=== PATIENT | male | born 1970 | race Caucasian/White ===

== ENCOUNTER 2019-02-19 07:16 | Inpatient (IN) ==
[2019-02-19] MEDS ORDERED: Ipratropium/Albuterol Neb 3 ML IH STA (07:28)
--- NOTE | 2019-02-19 07:31 | Emergency Department Note ---
Disposition Clinical Impression: Dyspnea Qualifiers: Dyspnea type: orthopnea Qualified Code(s): R06.01 - Orthopnea Disposition: Admitted As Inpatient Condition: Fair Time of Disposition: 13:19 SOB HPI - General Chief Complaint: ED Shortness of Breath/Dyspnea Stated Complaint: SOB Time Seen by Provider: 02/19/19 07:27 Source: patient Mode of arrival: ambulatory Limitations: no limitations Nursing Notes Reviewed: Yes Vital Signs Reviewed: Yes - History of Present Illness Patient a 48-year-old male with no previous medical history who presents with shortness breath or past several weeks. He presented to a primary care doctor who believed his initial diagnosis was bronchitis, was given a course of doxycycline. The shortness of breath has been constant and worsens when he is laying down. He has also only able to walk short distances within his house before he gets tired/dyspneic. Has been getting worse over the last 2-3 days. Endorses a cough productive of sputum. He has also noticed some blood in his sputum. Patient also endorses chest tightness across his entire chest and extending to his back. He denies any nausea, vomiting. Positive for fevers and chills. Denies any abdominal pain, constipation, diarrhea. No recent immobi lization/travel, hospitalizations, surgeries, blood clots. Is not on any anticoagulation. No numbness, weakness, paresthesias. Patient does not smoke, formerly [id number] history of smoking, and chews tobacco. Denies any alcohol use. Denies any recreational drug use. - Related Data Home Medications Medication Instructions Recorded Confirmed No Known Home Drugs 02/19/19 02/19/19 Allergies Allergy/AdvReac Type Severity Reaction Status Date / Time No Known Allergies Allergy Verified 02/19/19 07:40 All systems ED: reviewed and negative except as stated. Review of Systems: As Per HPI Constitutional: Reports: fever, chills. Denies: weakness Eyes: Denies: eye pain, eye discharge, vision change ENT ED: Denies: ear pain, throat pain, dental pain Cardiovascular: Reports: chest pain. Denies: palpitations, dyspnea on exertion Respiratory: Reports: cough, dyspnea, hemoptysis. Denies: wheezes Gastrointestinal: Denies: abdominal pain, nausea, vomiting, diarrhea, constipation Genitourinary: Denies: urgency, dysuria, frequency Musculoskeletal: Denies: back pain, neck pain, joint swelling Integumentary: Denies: rash, abrasion, lesions Neurological: Denies: headache, weakness, numbness, paresthesias Psychiatric: Denies: anxiety, depression, suicidal thoughts Endocrine: Reports: fatigue. Denies: heat or cold intolerance, polyuria Hematological/Lymphatic: Denies: easy bleeding, easy bruising Past Medical History - Past Medical History Attestation: Yes The following information was validated with the patient. Source: patient Physical Exam GEN: Well-appearing, NAD, conversant. HEAD: Normocephalic, atraumatic. EYES: PERRL, EOMI, anicteric. ENT: MMM. oropharynx without erythema or drainage. NECK: Supple. No LAD. No stiffness or restricted ROM. No tracheal deviation. HEART: Regular rate and regular rhythm, normal S1/S2, no m/r/g. LUNGS: CTAB, good air exchange bilaterally. No wheezing, rubs, or rhonchi. ABDO: Soft, nontender, nondistended with active bowel sounds. : No suprapubic tenderness or CVA tenderness. BACK: No obvious stepoffs or deformities. EXT: Without cyanosis, clubbing or edema. SKIN: Warm and dry without any rash. NEURO: Grossly nonfocal. Alert and oriented, moving all 4 extremities. CN not formally tested but appear grossly intact. Observed to ambulate with normal gait. PSYCH: Normal affect, no depressed or anxious mood. Course Course Narrative: Patient was seen and examined. - Reevaluation(s) Reevaluation #1: Upon reevaluation after inhalers treatment, patient noted some moderate improvement with his breathing. A bedside ultrasound was significant for an akinetic left ventricle, poor squeeze. Aspirin was given for troponin elevation of 0.06. Time: 09:25 Vital Signs Temperature 98.6 F 02/19/19 07:37 Pulse Rate 107 02/19/19 07:37 Respiratory Rate 18 02/19/19 07:37 Blood Pressure 156/94 02/19/19 07:37 O2 Sat by Pulse Oximetry 97 02/19/19 07:37 Temperature 97.4 F L 02/19/19 11:46 Pulse Rate 50 02/19/19 11:46 Respiratory Rate 16 02/19/19 11:46 Blood Pressure 153/96 02/19/19 11:46 O2 Sat by Pulse Oximetry 95 02/19/19 11:46 Oxygen Delivery Oxygen Delivery Nasal Cannula Shortness of Breath/Dyspnea - [facility] Narrative Medical decision making narrative: Patient is a 48-year-old male with shortness of breath. Likely due to new CHF. Patient had an elevated BMP of 670 and a troponin elevation of 0.6. His EKG did not show any acute ischemic changes. Bedside ultrasound showed a dilated left surgical and a poor ejection fraction. Patient will benefit from admission for further workup of new heart failure and shortness of breath. And for further management and treatment. Chest x-ray did not show any evidence of pneumonia, however opacities that could indicate pulmonary edema. Patient was communicated to the hospitalist and admitted for further treatment. - Medical Records Medical records reviewed: Yes I reviewed the patient's medical records. - Lab Data Lab results reviewed: Yes I reviewed the patient's lab results. Result diagrams: 02/19/19 07:46 02/19/19 07:46 Lab Results 02/19/19 02/19/19 02/19/19 Range/Units 07:46 07:46 07:46 WBC 8.9 (4.3-11.1) K/mcL RBC 5.54 H (4.19-5.50) M/mcL Hgb 16.5 (12.9-16.9) g/dL Hct 47.8 (37.5-50.1) % MCV 86.3 (83.0-100.0) fL MCH 29.8 (28.0-33.3) pg MCHC 34.5 (31.6-35.5) g/dL RDW 12.8 (11.5-14.5) % Plt Count 289 (140-400) K/mcL MPV 10.6 (9.4-12.4) fL Immature Gran % 0.3 (0-4) % Seg Neutrophils % 63.9 % Lymphocytes % 26.0 % Monocytes % 8.8 % Eosinophils % 0.4 % Basophils % 0.6 % Neutrophils # 5.7 (1.6-8.9) K/mcL Lymphocytes # 2.3 (0.6-4.6) K/mcL Monocytes # 0.8 (0.0-1.3) K/mcL Eosinophils # 0.0 (0.0-0.6) K/mcL Basophils # 0.1 (0.0-0.2) K/mcL Sodium 139 (136-145) mEq/L Potassium 4.1 (3.5-5.1) mEq/L Chloride 106 (98-107) mEq/L Carbon Dioxide 21 L (23-29) mEq/L BUN 13 (6-20) mg/dL Creatinine 1.10 (0.70-1.30) mg/dL Est GFR ( Amer) > 60 (> 60) Est GFR (Non-Af Amer) > 60 (> 60) BUN/Creatinine Ratio 12 (6-26) Glucose 130 H (70-105) mg/dL Calculated Osmolality 290 (280-300) Calcium 9.4 (8.6-10.3) mg/dL Total Bilirubin 0.8 (0.3-1.0) mg/dL Direct Bilirubin 0.2 (0.0-0.2) mg/dL Indirect Bilirubin 0.6 (0.0-1.2) mg/dL AST 21 (13-39) Units/L ALT 10 (7-52) Units/L Alkaline Phosphatase 87 (34-104) Units/L Troponin I 0.06 H* (< 0.04) ng/mL B-Natriuretic Peptide (Less than 100) pg/mL Serum Total Protein 6.6 (6.4-8.9) g/dL Albumin 4.3 (3.5-5.7) g/dL Globulin 2.3 L (2.4-3.5) g/dL Albumin/Globulin Ratio 1.9 (1.1-2.2) 02/19/19 Range/Units 08:51 WBC (4.3-11.1) K/mcL RBC (4.19-5.50) M/mcL Hgb (12.9-16.9) g/dL Hct (37.5-50.1) % MCV (83.0-100.0) fL MCH (28.0-33.3) pg MCHC (31.6-35.5) g/dL RDW (11.5-14.5) % Plt Count (140-400) K/mcL MPV (9.4-12.4) fL Immature Gran % (0-4) % Seg Neutrophils % % Lymphocytes % % Monocytes % % Eosinophils % % Basophils % % Neutrophils # (1.6-8.9) K/mcL Lymphocytes # (0.6-4.6) K/mcL Monocytes # (0.0-1.3) K/mcL Eosinophils # (0.0-0.6) K/mcL Basophils # (0.0-0.2) K/mcL Sodium (136-145) mEq/L Potassium (3.5-5.1) mEq/L Chloride (98-107) mEq/L Carbon Dioxide (23-29) mEq/L BUN (6-20) mg/dL Creatinine (0.70-1.30) mg/dL Est GFR ( Amer) (> 60) Est GFR (Non-Af Amer) (> 60) BUN/Creatinine Ratio (6-26) Glucose (70-105) mg/dL Calculated Osmolality (280-300) Calcium (8.6-10.3) mg/dL Total Bilirubin (0.3-1.0) mg/dL Direct Bilirubin (0.0-0.2) mg/dL Indirect Bilirubin (0.0-1.2) mg/dL AST (13-39) Units/L ALT (7-52) Units/L Alkaline Phosphatase (34-104) Units/L Troponin I (< 0.04) ng/mL B-Natriuretic Peptide 670 H (Less than 100) pg/mL Serum Total Protein (6.4-8.9) g/dL Albumin (3.5-5.7) g/dL Globulin (2.4-3.5) g/dL Albumin/Globulin Ratio (1.1-2.2) - Radiology Data Radiology results reviewed: Yes I reviewed the patient's radiology results. - EKG Data EKG attestation: Yes I reviewed and interpreted this EKG. EKG results narrative: EKG obtained at 7:32 AM showed sinus tachycardia with a rate of 108, bigeminy with PVCs, normal axis, normal intervals, no ST elevations or depressions, no T- wave inversions. No prior EKG for comparison.
[2019-02-19 08:20] LABS: Blood Urea Nitrogen 13 mg/dL (6-20); Calcium 9.4 mg/dL (8.6-10.3); Carbon Dioxide 21 mEq/L (23-29); Chloride 106 mEq/L (98-107); Glucose 130 mg/dL (70-105); Osmolality,Calculated 290 (280-300); Potassium 4.1 mEq/L (3.5-5.1); Sodium 139 mEq/L (136-145)
[2019-02-19 08:34] LABS: Basophils # 0.1 K/mcL (0.0-0.2); Basophils % 0.6 %; Eosinophils % 0.4 %; Hematocrit 47.8 % (37.5-50.1); Hemoglobin 16.5 g/dL (12.9-16.9); Immature Granulocytes % 0.3 % (0-4); Lymphocytes # 2.3 K/mcL (0.6-4.6); Mean Corpuscular HGB Conc 34.5 g/dL (31.6-35.5); Mean Corpuscular Hemoglobin 29.8 pg (28.0-33.3); Mean Corpuscular Volume 86.3 fL (83.0-100.0); Mean Platelet Volume 10.6 fL (9.4-12.4); Monocytes # 0.8 K/mcL (0.0-1.3); Monocytes % 8.8 %; Neutrophils # 5.7 K/mcL (1.6-8.9); Platelet Count 289 K/mcL (140-400); Red Blood Count 5.54 M/mcL (4.19-5.50); Red Cell Distribution Width 12.8 % (11.5-14.5); Segmented Neutrophils % 63.9 %; White Blood Count 8.9 K/mcL (4.3-11.1)
[2019-02-19] MEDS ORDERED: Aspirin 81 MG TAB.CHEW PO ONE (08:45)
--- NOTE | 2019-02-19 08:55 | Emergency Department Note ---
Disposition Clinical Impression: Dyspnea Qualifiers: Dyspnea type: orthopnea Qualified Code(s): R06.01 - Orthopnea Disposition: Admitted As Inpatient Condition: Fair Time of Disposition: 13:19 General Adult HPI - General Chief complaint: ED Shortness of Breath/Dyspnea Stated complaint: SOB Time Seen by Provider: 02/19/19 07:27 Source: patient Mode of arrival: ambulatory Limitations: no limitations - History of Present Illness Pain Scale: 0 - Related Data Home Medications Medication Instructions Recorded Confirmed No Known Home Drugs 02/19/19 02/19/19 Allergies Allergy/AdvReac Type Severity Reaction Status Date / Time No Known Allergies Allergy Verified 02/19/19 07:40 Constitutional: Reports: fever, chills. Denies: weakness Eyes: Denies: eye pain, eye discharge, vision change ENT ED: Denies: ear pain, throat pain, dental pain Cardiovascular: Reports: chest pain. Denies: palpitations, dyspnea on exertion Respiratory: Reports: cough, dyspnea, hemoptysis. Denies: wheezes Gastrointestinal: Denies: abdominal pain, nausea, vomiting, diarrhea, constipa tion Genitourinary: Denies: urgency, dysuria, frequency Musculoskeletal: Denies: back pain, neck pain, joint swelling Integumentary: Denies: rash, abrasion, lesions Neurological: Denies: headache, weakness, numbness, paresthesias Psychiatric: Denies: anxiety, depression, suicidal thoughts Endocrine: Reports: fatigue. Denies: heat or cold intolerance, polyuria Hematological/Lymphatic: Denies: easy bleeding, easy bruising Past Medical History - Past Medical History Medical history: Reports: non-contributory Psychiatric history: Reports: no psych history - Social History Smoking Status: Never smoker Smokeless Tobacco Status: Yes Alcohol use: Reports: none Drug use: Reports: none Physical Exam - General Limitations: no limitations General appearance: alert Course Vital Signs Temperature 98.6 F 02/19/19 07:37 Pulse Rate 107 02/19/19 07:37 Respiratory Rate 18 02/19/19 07:37 Blood Pressure 156/94 02/19/19 07:37 O2 Sat by Pulse Oximetry 97 02/19/19 07:37 Temperature 97.5 F L 02/19/19 14:56 Pulse Rate 86 02/19/19 14:56 Respiratory Rate 17 02/19/19 14:56 Blood Pressure 118/85 02/19/19 14:56 O2 Sat by Pulse Oximetry 94 02/19/19 14:56 Oxygen Delivery Oxygen Delivery Nasal Cannula Medical Decision Making - Lab Data Result diagrams: 02/19/19 07:46 02/19/19 07:46 Lab Results 02/19/19 02/19/19 02/19/19 Range/Units 07:46 07:46 07:46 WBC 8.9 (4.3-11.1) K/mcL RBC 5.54 H (4.19-5.50) M/mcL Hgb 16.5 (12.9-16.9) g/dL Hct 47.8 (37.5-50.1) % MCV 86.3 (83.0-100.0) fL MCH 29.8 (28.0-33.3) pg MCHC 34.5 (31.6-35.5) g/dL RDW 12.8 (11.5-14.5) % Plt Count 289 (140-400) K/mcL MPV 10.6 (9.4-12.4) fL Immature Gran % 0.3 (0-4) % Seg Neutrophils % 63.9 % Lymphocytes % 26.0 % Monocytes % 8.8 % Eosinophils % 0.4 % Basophils % 0.6 % Neutrophils # 5.7 (1.6-8.9) K/mcL Lymphocytes # 2.3 (0.6-4.6) K/mcL Monocytes # 0.8 (0.0-1.3) K/mcL Eosinophils # 0.0 (0.0-0.6) K/mcL Basophils # 0.1 (0.0-0.2) K/mcL Sodium 139 (136-145) mEq/L Potassium 4.1 (3.5-5.1) mEq/L Chloride 106 (98-107) mEq/L Carbon Dioxide 21 L (23-29) mEq/L BUN 13 (6-20) mg/dL Creatinine 1.10 (0.70-1.30) mg/dL Est GFR ( Amer) > 60 (> 60) Est GFR (Non-Af Amer) > 60 (> 60) BUN/Creatinine Ratio 12 (6-26) Glucose 130 H (70-105) mg/dL Calculated Osmolality 290 (280-300) Calcium 9.4 (8.6-10.3) mg/dL Total Bilirubin 0.8 (0.3-1.0) mg/dL Direct Bilirubin 0.2 (0.0-0.2) mg/dL Indirect Bilirubin 0.6 (0.0-1.2) mg/dL AST 21 (13-39) Units/L ALT 10 (7-52) Units/L Alkaline Phosphatase 87 (34-104) Units/L Troponin I 0.06 H* (< 0.04) ng/mL B-Natriuretic Peptide (Less than 100) pg/mL Serum Total Protein 6.6 (6.4-8.9) g/dL Albumin 4.3 (3.5-5.7) g/dL Globulin 2.3 L (2.4-3.5) g/dL Albumin/Globulin Ratio 1.9 (1.1-2.2) 02/19/19 Range/Units 08:51 WBC (4.3-11.1) K/mcL RBC (4.19-5.50) M/mcL Hgb (12.9-16.9) g/dL Hct (37.5-50.1) % MCV (83.0-100.0) fL MCH (28.0-33.3) pg MCHC (31.6-35.5) g/dL RDW (11.5-14.5) % Plt Count (140-400) K/mcL MPV (9.4-12.4) fL Immature Gran % (0-4) % Seg Neutrophils % % Lymphocytes % % Monocytes % % Eosinophils % % Basophils % % Neutrophils # (1.6-8.9) K/mcL Lymphocytes # (0.6-4.6) K/mcL Monocytes # (0.0-1.3) K/mcL Eosinophils # (0.0-0.6) K/mcL Basophils # (0.0-0.2) K/mcL Sodium (136-145) mEq/L Potassium (3.5-5.1) mEq/L Chloride (98-107) mEq/L Carbon Dioxide (23-29) mEq/L BUN (6-20) mg/dL Creatinine (0.70-1.30) mg/dL Est GFR ( Amer) (> 60) Est GFR (Non-Af Amer) (> 60) BUN/Creatinine Ratio (6-26) Glucose (70-105) mg/dL Calculated Osmolality (280-300) Calcium (8.6-10.3) mg/dL Total Bilirubin (0.3-1.0) mg/dL Direct Bilirubin (0.0-0.2) mg/dL Indirect Bilirubin (0.0-1.2) mg/dL AST (13-39) Units/L ALT (7-52) Units/L Alkaline Phosphatase (34-104) Units/L Troponin I (< 0.04) ng/mL B-Natriuretic Peptide 670 H (Less than 100) pg/mL Serum Total Protein (6.4-8.9) g/dL Albumin (3.5-5.7) g/dL Globulin (2.4-3.5) g/dL Albumin/Globulin Ratio (1.1-2.2) Attestation Statement - Attestation Attestation: I examined this patient and my medical decision-making was reviewed with the Resident Physician. I agree with the documented findings, disposition and treatment plan as described except to the extent set forth below. About 3 weeks of shortness of breath, worse when he lies flat. Had acute worsening overnight with an episode that sounds like paroxysmal nocturnal dyspnea. Does not carry a diagnosis of asthma or COPD, but has about a 30-40 pack year smoking history, none in the last 11 years. Does follow with primary care physician. Cough has been productive, more recently with blood-tinged sputum. On my exam, he has asymmetrical rales, worse in the bases, not asymmetric from left to right. No appreciable JVD or hepatojugular reflux, no peripheral edema. 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 I was present for the residency EKG interpretation. Chest x-ray interpretation per the radiolog ist seems equivocal but favors heart failure as opposed to interstitial pneumonitis. There are aspects of his history and physical are consistent with both, but his history and physical favor heart failure. With no diagnosis of underlying heart failure, a BNP should be useful. He has a mildly elevated troponin. Aspirin has been given. We will check a BNP and do a bedside point of care ultrasound for gross assessment of left ventricular function. Procedure, emergency point of care echocardiogram: Procedure performed by Dr. Childers with my assistance and under my supervision. Heart was visualized in the subxiphoid view as well as the parasternal long axis and apical windows. Ultrasound revealed significant left ventricular dysfunction with severely depressed left ventricular ejection fraction. The mitral valve did not approximate the septum consistently on the parasternal long axis view. No pericardial effusion was present. Left ventricular right ventricular ratio well exceeded the normal 2:1 ratio, indicating left ventricular dilation. Exam is consistent with left ventricular failure.
[2019-02-19 09:12] LABS: BUN/Creatinine Ratio 12 (6-26); eGFR For African Americans > 60 (> 60); eGFR For Non-African Americans > 60 (> 60)
[2019-02-19 10:31] LABS: Alanine Aminotransferase 10 Units/L (7-52); Albumin 4.3 g/dL (3.5-5.7); Albumin/Globulin Ratio 1.9 (1.1-2.2); Alkaline Phosphatase 87 Units/L (34-104); Aspartate Amino Transferase 21 Units/L (13-39); Bilirubin,Direct 0.2 mg/dL (0.0-0.2); Bilirubin,Indirect 0.6 mg/dL (0.0-1.2); Bilirubin,Total 0.8 mg/dL (0.3-1.0); Globulin 2.3 g/dL (2.4-3.5); Total Protein 6.6 g/dL (6.4-8.9)
[2019-02-19] MEDS ORDERED: Naloxone 0.4 MG/ML INJ IVP PRN (11:04)
[2019-02-19] MEDS ORDERED: Ondansetron 4 MG/2 ML VIAL IVP PRN (11:04)
--- NOTE | 2019-02-19 11:04 | Internal Med History&Physical ---
Date of Encounter: 02/19/19 Time of Encounter: 10:30 Internal Medicine - H&P: HPI Admitted From: Emergency Dept Plans for Post Hospital Care: Home History of present illness: Mr. Brunner is a 48 year old male with no significant past medical history he does reports possible dyslipidemia who presented to the ED to be evaluated for shortness of breath. Patient stated that for the past 3 weeks he has had insidious onset of shortness of breath, cough with occasional blood-streaked mucus. He also reports dyspnea on mild exertion orthopnea and paroxysmal nocturnal dyspnea. He denies any prior oxygen therapy. Patient does a history of tobacco use 1-2 packs per day for 20 years but quit many years ago. He also reports a history of social drinking on the weekends about 5-6 beers per week and and Liquor but also denies any current use. He denies any formal diagnosis of CHF, hypertension or prior history of pulmonary pathology. He reports is strong family history for coronary artery disease he is father of PA at age 43. He stated that he goes to his primary care physician twice a year every 6 months and that he works as a fork truck driver and denies any difficulty performing his duties until 3 weeks ago. Patient denies inhalation of any toxic vapors today that he quits tobacco use but still chews tobacco. 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 Amongst his clinical work up by the ED was unremarkable CBC, BMP and LFTs. Per the ED physician the bedside point of care ultrasound seems to suggest acute decompensated heart failure with poor ejection fraction with an enlarged left ventricle. His initial troponin was mildly elevated however patient denies any chest pain and his BNP was mildly elevated at 670. Chest x-ray does reveal bilateral diffuse symmetric interstitial opacities suggestive of either pulmonary edema or hypersensitivity pneumonitis. His Analy [phone] stated he does snore but patient denies symptoms of YVETTE ie no daytime somnolence Past Med Surg Social Fam HX - Past Medical History Medical history: non-contributory Psychiatric history: no psych history - Social History Smoking Status: Never smoker Smokeless Tobacco Status: Yes Alcohol use: none Drug use: none Internal Medicine - H&P: Meds No Known Home Drugs 02/19/19 [History] Allergy/AdvReac Type Severity Reaction Status Date / Time No Known Allergies Allergy Verified 02/19/19 07:40 All Systems PM: A 10-system review of systems was performed and is negative for pertinent findings except as documented above in the HPI. Review of systems: GENERAL: Denies fever, chills, reports fatigue and generalized weakness DERMATOLOGIC: Denies itch, rash or lesions HEENT: Denies headache, blurriness, diplopia or decreased visual acuity, ear pain, tinnitus, rhinorrhea, sinus tenderness or sore throat RESPIRATORY: Reports SOB, cough-productive of blood-streaked denies overt hemoptysis or pleuritic chest pain CARDIOVASCULAR: Denies chest pain, LE edema, palpitation or syncope reports DENISE mild exertion, orthopnea and paroxysmal nocturnal dyspnea GASTRO INTESTINAL: Denies cramps, nausea/vomiting, diarrhea or constipation, melena MUSCULOSKELATAL: Denies muscle pain/weakness, joint tenderness/pain or swelling PSYCH: Denies worsening anxiety, or depression NEURO: Denies vertigo, dizziness, or ataxia GENITURINARY: Denies dysuria, nocturia or urinary incontinence - Constitutional Vitals: Temp Pulse Resp BP Pulse Ox 98.6 F 52 18 120/78 96 02/19/19 07:37 02/19/19 09:08 02/19/19 09:08 02/19/19 09:08 02/19/19 09:08 Exam: GENERAL: Mildly distressed obese male A&O x3, pleasant and conversant at his bedside SKIN: [place] warm dry non-jaundiced EYES: EOMI, PERRLA, no sclera icterus HENT: Head atraumatic, no facial asymmetry, frontal and maxillary sinus non- tender, normal hearing, oropharynx and mucosa moist and without any exudates Mallampati score of 3 NECK: No cervical lymphadenopathy, trachea midline, thyroid is palpable does not appear enlarged LUNGS: Diminished breath sounds with wheeze and scattered crackles. Non labored respirations HEART: Normal rate and rhythm, no murmurs or rubs ABDOMEN: soft, non-tender, non-distended, bowel sounds x 4 normoactive EXTRMITIES: No LE asymmetry, No LE edema, pedal pulses 1+ and radial pulses 2 + and equal bilaterally NEURO: Speech and comprehension appears intact. PSYCH: Cooperative, non- anxious or irritable, mood and affect is appropriate Internal Med - H&P Results - Labs CBC & Chem 7: 02/19/19 07:46 02/19/19 07:46 Labs: Short CBC 02/19/19 Range/Units 07:46 WBC 8.9 (4.3-11.1) K/mcL Hgb 16.5 (12.9-16.9) g/dL Hct 47.8 (37.5-50.1) % Plt Count 289 (140-400) K/mcL Neutrophils # 5.7 (1.6-8.9) K/mcL BMP 02/19/19 07:46 Sodium 139 Potassium 4.1 Chloride 106 Carbon Dioxide 21 L BUN 13 Creatinine 1.10 Glucose 130 H Calcium 9.4 Cardiac Enzymes 02/19/19 Range/Units 07:46 Troponin I 0.06 H* (< 0.04) ng/mL Liver Function 02/19/19 Range/Units 07:46 Total Bilirubin 0.8 (0.3-1.0) mg/dL Direct Bilirubin 0.2 (0.0-0.2) mg/dL AST 21 (13-39) Units/L ALT 10 (7-52) Units/L Alkaline Phosphatase 87 (34-104) Units/L Albumin 4.3 (3.5-5.7) g/dL - Impressions ITS Impressions Chest X-Ray 02/19/19 07:41 IMPRESSION: Bilateral diffuse symmetric interstitial opacities which may represent pulmonary edema versus possible hypersensitivity pneumonitis. D/ / 02/19/2019 09:24:33 Elver Vital MD / [place] Interpreting Provider: Elver Vital MD - Assessment and Plan (1) Dyspnea Current Visit: Yes Status: Acute Assessment and plan: Patient reports insidious onset of dyspnea he also admits to orthopnea and paroxysmal nocturnal dyspnea upon exam no JVD no lower extremity edema. Chest x-ray is suggestive for either pulmonary edema versus hypersensitivity pneumonitis. Protocol that showed ED physician point of care bedside ultrasound reveals poor EF. A stat echocardiogram has been ordered to better evaluate his heart is BNP was mildly elevated. We will also obtain a pro-calcitonin to rule out any infectious causes although low because patient is afebrile has no leukocytosis he also reports having blood-streaked mucus but denies overt hemoptysis. He stated a history of relatively in good health until 3 weeks ago and had this insidious onset of dyspnea or cough. Patient now reports at his workplace for 20 years they have been no incidences of pop corn lungs as Bronchilitis [place] is on the differential. He quit cigarettes many years ago but does endorse a history of one to 2 packs per day for 20 years as such COPD exacerbation is also in the differential. For possible pulmonary edema will initiate the patient on Lasix 40 mg daily monitor strict I's and O's. For possible COPD exacerbation we will start patient on azithromycin. A subsequent CT of the chest has also been ordered to further delineate lung pathology Qualifiers: Dyspnea type: orthopnea Qualified Code(s): R06.01 - Orthopnea (2) Cough present for greater than 3 weeks Current Visit: Yes Status: Acute Assessment and plan: Patient reports cough for more than 3 weeks with blood-streaked mucus see plan above for dyspnea (3) Troponin I above reference range Current Visit: Yes Status: Acute Assessment and plan: He denies chest pain would trend troponin there is concerns for cardiomyopathy he does report a strong family history for coronary artery disease is followed at of an PA at age 45 is aforemention stat ECHO has been ordered (4) Abnormal chest x-ray Current Visit: Yes Status: Acute Assessment and plan: Chest x-ray is suggestive for either pulmonary edema versus hypersensitivity pneumonitis patient denies any inhalation of toxic substances he is on correlation is his colleague at work have a new incidence of bronchilitis obliterana as aforementioned, CT of the chest has been ordered (5) DVT prophylaxis Current Visit: Yes Status: Acute Assessment and plan: Patient reports blood-streaked cough sputum currently being worked up vasculiditis have not been ruled out as such hesitant to resume any anticoagulation therapy will place on mechanical dvt with scds - Time Spent With Patient Total time spent is greater than 50% in coordination of care (as documented) at patient's floor/unit and/or counseling patient:
[2019-02-19] MEDS ORDERED: Azithromycin 500 MG in 0.9 % Sodium Chloride 250 ML IVPB SCH (12:00)
[2019-02-19] MEDS: MethylPREDNISolone 40 MG/ML VIAL IVP SCH (15:33)
[2019-02-19] MEDS ORDERED: Furosemide 40 MG/4 ML VIAL IVP SCH (15:36)
[2019-02-19] MEDS: Ipratropium/Albuterol Neb 3 ML IH SCH ×2 (15:45→22:08)
--- NOTE | 2019-02-19 21:53 | Electrocardiograph Report ---
[address] [address] Test Date: 2019-02-19 Pat Name: Joe Brunner Department: EXAM1 Room: 2A Gender: M Professor Of Business Administration: : 1970 Requested By: [id number] Order Number: [id number] Reading MD: Roxana Mendoza Measurements Intervals [place] Rate: 108 P: 78 RI: 163 QRS: -2 QRSD: 115 T: 119 QT: 379 QTc: 454 Interpretive Statements Sinus tachycardia Ventricular bigeminy Left atrial enlargement Nonspecific intraventricular conduction delay Borderline low voltage, extremity leads Consider anterior infarct Abnormal T, consider ischemia, lateral leads Electronically Signed On 02-19-2019 21:52:02 EDT by Roxana Mendoza
[2019-02-20] MEDS: MethylPREDNISolone 40 MG/ML VIAL IVP SCH ×3 (00:48→17:42)
[2019-02-20] MEDS: Ipratropium/Albuterol Neb 3 ML IH SCH ×4 (03:23→22:40)
[2019-02-20 04:15] LABS: Basophils % 0.2 %; Hematocrit 45.2 % (37.5-50.1); Hemoglobin 15.8 g/dL (12.9-16.9); Immature Granulocytes % 0.4 % (0-4); Lymphocytes # 0.8 K/mcL (0.6-4.6); Lymphocytes % 8.6 %; Mean Corpuscular Hemoglobin 29.6 pg (28.0-33.3); Mean Corpuscular Volume 84.8 fL (83.0-100.0); Mean Platelet Volume 10.4 fL (9.4-12.4); Monocytes # 0.2 K/mcL (0.0-1.3); Monocytes % 2.3 %; Neutrophils # 8.6 K/mcL (1.6-8.9); Platelet Count 314 K/mcL (140-400); Red Blood Count 5.33 M/mcL (4.19-5.50); Red Cell Distribution Width 12.9 % (11.5-14.5); Segmented Neutrophils % 88.5 %; White Blood Count 9.7 K/mcL (4.3-11.1)
[2019-02-20 04:30] LABS: BUN/Creatinine Ratio 16 (6-26); Blood Urea Nitrogen 17 mg/dL (6-20); Calcium 9.3 mg/dL (8.6-10.3); Carbon Dioxide 23 mEq/L (23-29); Chloride 105 mEq/L (98-107); Cholesterol 161 mg/dL (< 200); Glucose 152 mg/dL (70-105); HDL Cholesterol 40 mg/dL (40-59); LDL Cholesterol,Calculated 106 mg/dL (0-99); Magnesium 2.1 mg/dL (1.6-2.6); Osmolality,Calculated 291 (280-300); Potassium 4.4 mEq/L (3.5-5.1); Sodium 138 mEq/L (136-145); Triglycerides 73 mg/dL (< 150); eGFR For African Americans > 60 (> 60); eGFR For Non-African Americans > 60 (> 60)
[2019-02-20] MEDS: cefTRIAXone 1,000 MG in Water for inj. (sterile) 10 ML IVP SCH (08:54)
[2019-02-20] MEDS: Furosemide 40 MG/4 ML VIAL IVP SCH ×2 (08:55→15:43)
[2019-02-20] MEDS ORDERED: Furosemide 40 MG/4 ML VIAL IVP SCH (09:00)
[2019-02-20] MEDS ORDERED: Isovue-370 500 ML BOTTLE IVP ONE (11:10)
[2019-02-20] MEDS: Azithromycin 250 MG TABLET PO SCH (11:38)
--- NOTE | 2019-02-20 12:57 | Internal Med Progress Note ---
Hospitalist Progress Note - Encounter Date of Encounter: 02/20/19 Time of Encounter: 09:00 - Subjective Interval History: No acute events overnight - Exam Vitals: Temp Pulse Resp BP Pulse Ox 97.6 F 48 16 139/73 92 02/20/19 11:14 02/20/19 11:14 02/20/19 11:14 02/20/19 11:14 02/20/19 11:14 Exam: GENERAL: Mildly distressed obese male A&O x3, pleasant and conversant at his bedside SKIN: [place] warm dry non-jaundiced EYES: EOMI, PERRLA, no sclera icterus HENT: Head atraumatic, no facial asymmetry, frontal and maxillary sinus non- tender, normal hearing, oropharynx and mucosa moist and without any exudates Mallampati score of 3 NECK: No cervical lymphadenopathy, trachea midline, thyroid is palpable does not appear enlarged LUNGS: Diminished breath sounds with wheeze and scattered crackles. Non labored respirations HEART: Normal rate and rhythm, no murmurs or rubs ABDOMEN: soft, non-tender, non-distended, bowel sounds x 4 normoactive EXTRMITIES: No LE asymmetry, No LE edema, pedal pulses 1+ and radial pulses 2 + and equal bilaterally NEURO: Speech and comprehension appears intact. PSYCH: Cooperative, non- anxious or irritable, mood and affect is appropriate - Assessment and Plan (1) Acute systolic (congestive) heart failure Current Visit: Yes Status: Acute Assessment and Plan: Pt comes in with shortness of breath and cough of [address] chest shows bilateral pleural effusions and echo showed severe sytolic dysfun ction This is new onset acute systolic cHF. continue diuresis with lasix. Cardiology plan on [facility] on saturday Has multiple risk factors for CAD with obesity and family hx of CAD (2) Cardiomyopathy Current Visit: Yes Status: Acute Assessment and Plan: See #1. New cardiomyopathy. Cardiology on board and plan for [facility] on saturday (3) Pneumonia Current Visit: Yes Status: Acute Assessment and Plan: Continue ceftriaxone and azithromycin. There could be a componenet of occupational lung disease Wean off steroids as tolerated (4) DVT prophylaxis Current Visit: Yes Status: Acute Assessment and Plan: Heparin sc - Time Spent with Patient Total time spent is greater than 50% in coordination of care (as documented) at patient's floor/unit and/or counseling patient: Internal Medicine: Result - Labs CBC & Chem 7: 02/20/19 03:07 02/20/19 03:07 Labs: Short CBC 02/20/19 Range/Units 03:07 WBC 9.7 (4.3-11.1) K/mcL Hgb 15.8 (12.9-16.9) g/dL Hct 45.2 (37.5-50.1) % Plt Count 314 (140-400) K/mcL Neutrophils # 8.6 (1.6-8.9) K/mcL BMP 02/20/19 03:07 Sodium 138 Potassium 4.4 Chloride 105 Carbon Dioxide 23 BUN 17 Creatinine 1.04 Glucose 152 H Calcium 9.3 Cardiac Enzymes 02/19/19 02/19/19 Range/Units 14:02 19:33 Troponin I 0.05 H* 0.05 H* (< 0.04) ng/mL - Impressions Impressions Chest CT 02/19/19 14:58 IMPRESSION: 1. Small bilateral effusions, right greater than left, with bilateral airspace opacities. Differential considerations include atypical infection or edema. Evaluation is limited by motion. D/ / 02/19/2019 15:03:52 Camila Dent MD / rhett Interpreting Provider: Camila Dent MD Echocardiogram 02/19/19 20:50 Impressions: Technically challenging due to body habitus. Grossly severe LV systolic dysfunction. Recommend repeat Limited study with Definity. Moderate-severely dilated left ventricle. LV diastolic dysfunction with elevated filling pressures. Normal right ventricular structure and function by TAPSE and TD. Mild mitral regurgitation. Mild tricuspid regurgitation. Mild pulmonic regurgitation. No pulmonary hypertension. There is a trivial pericardial effusion present. There is no echocardiographic evidence of tamponade. Left Ventricular Wall Motion: Rest Echo Findings The apex, apical inferior, mid inferior, basal inferior, apical anterior, mid anterior, basal anterior, apical septal, mid inferior septal, basal inferior septal, apical lateral, mid anterior lateral, basal anterior lateral, mid anterior septal, mid inferior lateral, basal anterior septal and basal inferior lateral calderon were hypokinetic. Findings: Study Quality * Technically challenging due to body habitus. ECG Findings * Sinus rhythm with PVCs. Left Ventricle * Severe LV systolic dysfunction. * Moderate-severely dilated left ventricle. * LV diastolic dysfunction with elevated filling pressures. Right Ventricle * Normal right ventricular structure and function by TAPSE and TD. Left Atrium * Mildly dilated left atrium. Right Atrium * Normal right atrial size. Aortic Valve * Trileaflet aortic valve. * No aortic stenosis. * Trace aortic regurgitation. Mitral Valve * No mitral stenosis. * Mild mitral regurgitation. * Normal mitral valve structure. Tricuspid Valve * Tricuspid valve not well visualized. * Mild tricuspid regurgitation. * Estimated RA pressure is 8 mmHg. * Estimated RVSP is 31 mmHg. * No pulmonary hypertension. Pulmonic Valve * Pulmonic valve is not well visualized. * No pulmonic stenosis. * Mild pulmonic regurgitation. Pulmonary Artery * Pulmonary artery not well visualized. Aorta * Normally sized aortic root. Pericardium * There is a trivial pericardial effusion present. * There is no echocardiographic evidence of tamponade. Interatrial Septum * No evidence of PFO by color Doppler. IVC * The IVC is not dilated. * < 50% respiratory change. Chest CTA 02/20/19 12:38 IMPRESSION: No central or segmental pulmonary embolus. Small pleural effusions. Bilateral ground-glass opacities are nonspecific and may be related to edema versus infection. D/ / 02/20/2019 12:54:02 Jabier Melo MD / kyle Interpreting Provider: Jabier Melo MD Consult Discharge Plan - Plan Referrals: Deniz Maier DO [Primary Care Provider] -
--- NOTE | 2019-02-20 14:21 | Cardiology Consult Note ---
<Dada Laguna M - Last Filed: 02/20/19 13:56> Date of Encounter: 02/20/19 Time of Encounter: 13:00 Assessment and Plan (1) Congestive heart failure (CHF) Current Visit: Yes Status: Acute Patient presents with acute onset CHF Will exclude ischemic cause of new onset Cardiomyopathy, if LHC negative will expand w/u Other etiologies include endocrine(TSH normal, DM possible, Pheo unlikely), connective tissue dx (SLE, scleroderm etc.), restrictive CM (amyloid/sarcoid/HH) TSH wnl, low suspicion for toxic cardiomyopathies but patient does admit to regular alcohol use States co-workers have recently diagnosed with Popcorn Lung, possible occupational/inhalation lung exposures as well on differential Strong Family history of CAD, history of Tobacco Abuse Denies HTN, HLD, or DM but Blood Sugar is elevated, systolic BP was 150's, LDL elevated CXR and CT chest show b/l pleural effusions with interstitial opacities consistent with pulmonary edema EKG shows left atrial enlargement, ventricular Bigeminy, t-wave abnormality in lateral leads Echo shows severe LV systolic dysfunction, LV diastolic dysfunction with increased filling pressures, no PulmHTN, no significant valvular disease No evidence of Right heart Failure on echo, no peripheral edema on exam Troponins x3 were minimally elevated, 0.06-->0.05-->0.05, BNP 670; Patient den ies any instances of chest pain Echo was suboptimal study d/t body habitus, will repeat with Definity Plan: -LHC on Saturday, risks/benefits discussed at length with patient, who is agreeable to proceed -Follow up with limited 2D echo with Definity results -Will Check Hgb A1C -Added ACEi, Lipitor -No BB d/t episodes of Bradycardia -Continue IV Diuresis as tolerated by kidneys -No indication for Anticoagulation currently Qualifiers: Heart failure type: combined systolic and diastolic Heart failure chronicity: unspecified Qualified Code(s): I50.40 - Unspecified combined systolic (congestive) and diastolic (congestive) heart failure Discussion w patient/family: The assessment and plan as outlined above was discussed with the patient and/or family members who expressed understanding and agreement. All questions were answered. Thank you for involving us in the care of your patient. Please call with any questions. History of Present Illness History of present illness: Mr. Brunner is a 48 year old male with no significant PMHx who present with progressively worsening dyspnea of 3wks duration with associated PND, orthopnea, and worsening DENISE. Admits to occasional instances of blood-tinged mucous but no overt hemoptysis. Patient reports no recent infections and no recent sick contacts, no recent viral illnesses, though he does admit to increasing cough with sputum production, clear in appearance, no fevers/chills. The patient d enies chest pain but does admit to risk factors for CAD. Denies any known congenital heart conditions. Patients father of DE age 43 and brother suffered an DE also in 40's. Additionally, the patient did smoke 2ppd for roughly 20yrs but quit 11 yrs ago. The patient denies DM, HTN, HLD and does f ollow regularly with his PCP. Patient denies known history of YVETTE though does report signficant snoring but no episodes obvious apnea. In the ED, HR 107, BP 156/94, RR 18, SpO2 97% on RA. CBC was normal, CMP showed mildly elevated Blood sugar, BNP 670, troponin 0.06-->0.05-->0.05, LDL slightly elevated at 106, TSH normal Procaclitonin normal. CXR showed bilateral interstitial opacities consistent with pulmonary edema vs hypersensitivity pneumonitis. CTA was negative for PE, CT Chest showed b/l pleural effusions with b/l airspace opacities. Echo was suboptimal study d/t body habitus but did show severe LV systolic dysfunction, with LV diastolic dysfunction and increased filling pressures, with mild mitral/tricuspid/pulmonary regurgitation. No evidence of pulmonary hypertension. Past Med Surg Social Fam HX - Past Medical History Medical history: hypertension Additional medical history: was on medication for htn 20 years ago, but blood pressure has been normal since, without medication. Psychiatric history: no psych history - Social History Smoking Status: Former smoker Smokeless Tobacco Status: Yes Alcohol use: none Drug use: none - Family History Father Living Status: Age at : 43 Cause of : DE Hx Family Cardiac Disorders: Yes Hx Family Endocrine Disorder: Yes Medications and Allergies No Known Home Drugs 02/19/19 [History] Allergy/AdvReac Type Severity Reaction Status Date / Time doxycycline Allergy Rash,SWELLI Verified 02/19/19 22:29 NG,VOMITING All Systems Review: The remainder of the systems were reviewed and are negative Physical Examination Vital Signs, Last 4 Hours Temp Pulse Resp BP Pulse Ox 02/20/19 11:14 97.6 F 48 16 139/73 92 02/20/19 10:23 20 93 Other: Gen: alert and oriented, nad, vitals noted Head: atraumatic normocephalic Eyes: anicteric sclera, EOMI ENT: MMM, oropharynx clear Neck: trachea midline, no lymphadenopathy or thyromegaly CV: Bradycardic, rhythm regular, +S1 +S2, faint S3 appreciated as well, no murmurs or rubs Resp: CTAB, no wheezes rales rhonchi, diminished breath sounds in the RLL Abd: distended, soft, nontender, no overt organomegaly Ext: no peripheral edema, no rash, no clubbing , no cyanosis Results 02/20/19 03:07 02/20/19 03:07 Lab Results 02/19/19 02/19/19 02/19/19 14:02 14:02 19:33 WBC Hgb Hct Plt Count Sodium Potassium Chloride Carbon Dioxide BUN Creatinine Glucose Calcium Magnesium Troponin I 0.05 H* 0.05 H* TSH 1.199 02/20/19 02/20/19 03:07 03:07 WBC 9.7 Hgb 15.8 Hct 45.2 Plt Count 314 Sodium 138 Potassium 4.4 Chloride 105 Carbon Dioxide 23 BUN 17 Creatinine 1.04 Glucose 152 H Calcium 9.3 Magnesium 2.1 Troponin I TSH Consult Discharge Plan - Plan Referrals: Deniz Maier DO [Primary Care Provider] - Cardiac Rehab - Cardiac Rehab Cardiac Rehab: Phase I consult completed. Patient was educated on why Cardiac Rehabilitation is beneficial to his/her health. Participating in a cardiac rehabilitation can improve the following: strengthen your heart, improve ejection fraction, weight reduction, decrease cholesterol levels, lower blood pressure, lower blood sugar, improve stamina, and enhance self-image. If he/she has any questions, they were instructed to call [facility] at [phone]. < A - Last Filed: 02/20/19 15:26> Date of Encounter: 02/20/19 - Attending Attestation I have personally performed a face to face evaluation on this patient. I have reviewed and agree with the documented findings and care plan as documented by the resident. History and Exam by me shows: 48-year-old pleasant gentleman with family history of premature coronary artery disease in his dad, presenting with progressively worsening shortness of breath, found to be acute systolic CHF NYHA class IV. Echocardiogram revealed severely reduced LVEF. AAOX3 in NAD at the bedside Hemodynamically stable Cardiopulmonary exam revealed S1, S2, no murmur; mild bibasilar rales EKG sinus tachycardia with ventricular bigeminy Echo severely reduced LVEF. Echo with Definity pending Impression/plan: 1. Acute systolic CHF NYHA class IV 2. Cardiomyopathy, unspecified 3. Family history of premature coronary artery disease 4. Obesity BMI 39 Continue diuresis over the weekend, we will arrange for cardiac catheterization on Saturday. Start SAVITA inhibitor, moderate intensity statin. Holding beta joss due to acute CHF and bradycardia (HR currently in the 50s) Thanks for the consult, please call with questions. Saturday MD Jackelyn FAC Assessment and Plan Discussion w patient/family: The assessment and plan as outlined above was discussed with the patient and/or family members who expressed understanding and agreement. All questions were answered. Thank you for involving us in the care of your patient. Please call with any questions. History of Present Illness History of present illness: Mr. Brunner is a 48 year old male All Systems Review: The remainder of the systems were reviewed and are negative Results 02/20/19 03:07 02/20/19 03:07 Lab Results 02/19/19 02/20/19 02/20/19 19:33 03:07 03:07 WBC 9.7 Hgb 15.8 Hct 45.2 Plt Count 314 Sodium 138 Potassium 4.4 Chloride 105 Carbon Dioxide 23 BUN 17 Creatinine 1.04 Glucose 152 H Calcium 9.3 Magnesium 2.1 Troponin I 0.05 H* Cardiac Rehab - Cardiac Rehab Cardiac Rehab: Phase I consult completed. Patient was educated on why Cardiac Rehabilitation is beneficial to his/her health. Participating in a cardiac rehabilitation can improve the following: strengthen your heart, improve ejection fraction, weight reduction, decrease cholesterol levels, lower blood pressure, lower blood sugar, improve stamina, and enhance self-image. If he/she has any questions, they were instructed to call [facility] at [phone].
[2019-02-20] MEDS: *HR* Heparin 5,000 UNIT/ML VIAL SQ SCH (17:42)
[2019-02-20] MEDS ORDERED: Acetaminophen 325 MG TABLET PO ONE (20:21)
[2019-02-20] MEDS ORDERED: Perflutren Lipid Microsphere 1.3 ML in 0.9 % Sodium Chloride 8.7 ML IVP ONE (21:12)
[2019-02-21] MEDS: Ipratropium/Albuterol Neb 3 ML IH SCH ×4 (03:48→22:52)
[2019-02-21] MEDS: MethylPREDNISolone 40 MG/ML VIAL IVP SCH (05:31)
[2019-02-21] MEDS: *HR* Heparin 5,000 UNIT/ML VIAL SQ SCH ×2 (05:31→16:49)
[2019-02-21] MEDS: Furosemide 40 MG/4 ML VIAL IVP SCH ×2 (07:44→16:49)
[2019-02-21] MEDS: Azithromycin 250 MG TABLET PO SCH (07:44)
[2019-02-21] MEDS: cefTRIAXone 1,000 MG in Water for inj. (sterile) 10 ML IVP SCH (07:44)
[2019-02-21 08:06] LABS: Basophils % 0.1 %; Hematocrit 45.4 % (37.5-50.1); Hemoglobin 15.7 g/dL (12.9-16.9); Immature Granulocytes % 0.6 % (0-4); Lymphocytes # 1.1 K/mcL (0.6-4.6); Lymphocytes % 7.1 %; Mean Corpuscular HGB Conc 34.6 g/dL (31.6-35.5); Mean Corpuscular Hemoglobin 30.5 pg (28.0-33.3); Mean Corpuscular Volume 88.3 fL (83.0-100.0); Mean Platelet Volume 10.4 fL (9.4-12.4); Monocytes % 5.9 %; Neutrophils # 13.9 K/mcL (1.6-8.9); Platelet Count 315 K/mcL (140-400); Red Blood Count 5.14 M/mcL (4.19-5.50); Red Cell Distribution Width 13.2 % (11.5-14.5); Segmented Neutrophils % 86.3 %
[2019-02-21 08:10] LABS: White Blood Count 16.1 K/mcL (4.3-11.1)
[2019-02-21 08:27] LABS: BUN/Creatinine Ratio 23 (6-26); Blood Urea Nitrogen 25 mg/dL (6-20); Calcium 9.6 mg/dL (8.6-10.3); Carbon Dioxide 25 mEq/L (23-29); Chloride 104 mEq/L (98-107); Glucose 151 mg/dL (70-105); Magnesium 2.2 mg/dL (1.6-2.6); Osmolality,Calculated 291 (280-300); Phosphorous 4.6 mg/dL (2.7-4.5); Sodium 137 mEq/L (136-145); eGFR For African Americans > 60 (> 60); eGFR For Non-African Americans > 60 (> 60)
[2019-02-21 09:16] LABS: Estimated Average Glucose 143 mg/dl
--- NOTE | 2019-02-21 10:44 | Cardiology Progress Note ---
Date of Encounter: 02/21/19 Time of Encounter: 09:15 Assessment and Plan (1) Acute systolic (congestive) heart failure Current Visit: Yes Status: Acute ACute systolic CHF. CXR and CT chest show b/l pleural effusions with interstitial opacities consistent with pulmonary edema EKG shows left atrial enlargement, ventricular Bigeminy, t-wave abnormality in lateral leads Echo shows severe LV systolic dysfunction, LV diastolic dysfunction with increased filling pressures, no PulmHTN, no significant valvular disease No evidence of Right heart Failure on echo, no peripheral edema on exam Troponins x3 were minimally elevated, 0.06-->0.05-->0.05, BNP 670; Patient denies any instances of chest pain Echo was suboptimal study d/t body habitus, will repeat with Definity. Repeat echo- EF severely reduced at 25%. No prior history. Continue IV lasix. Add bb. Continue aceI. [facility] saturday as recommended for ischemic evaluation. Patient agrees with plan. Discussion w patient/family: The assessment and plan as outlined above was discussed with the patient and/or family members who expressed understanding and agreement. All questions were answered. Thank you for involving us in the care of your patient. Please call with any questions. Subjective Principal diagnosis: CHF Interval history: Pt reports he is breathing better Objective Vital Signs, Last 4 Hours Temp Pulse Resp BP Pulse Ox 02/21/19 06:59 97.8 F 74 18 128/77 95 General: Conversant, No Apparent Distress HEENT: Atraumatic, Normocephaly, Mucus Membranes Moist Neck: No JVD, Normal carotid pulses Cardiac: Reg Rate and Rhythm, Normal S1 and S2, No Murmur Lungs: Normal Breath Sounds, No Wheeze, Rales, Rhonchi Neuro: Alert and responsive, No focal deficits noted Abdomen: Soft, Non-Tender Skin: No rashes noted on visualized skin Musculoskeletal: No Chest Wall Tenderness Extremities: No Clubbing, No Cyanosis, No Edema, Normal Pulses Results 02/21/19 06:42 02/21/19 06:42 Lab Results 02/21/19 02/21/19 06:42 06:42 WBC 16.1 H D Hgb 15.7 Hct 45.4 Plt Count 315 Sodium 137 Potassium 4.0 Chloride 104 Carbon Dioxide 25 BUN 25 H Creatinine 1.11 Glucose 151 H Calcium 9.6 Magnesium 2.2 - Imaging and Cardiology Echo: report reviewed - EKG Interpretation EKG results cardiology: personally reviewed Consult Discharge Plan - Plan Referrals: Deniz Maier DO [Primary Care Provider] - Cardiac Rehab - Cardiac Rehab Cardiac Rehab: Phase I consult completed. Patient was educated on why Cardiac Rehabilitation is beneficial to his/her health. Participating in a cardiac rehabilitation can improve the following: strengthen your heart, improve ejection fraction, weight reduction, decrease cholesterol levels, lower blood pressure, lower blood sugar, improve stamina, and enhance self-image. If he/she has any questions, they were instructed to call [facility] at [phone].
--- NOTE | 2019-02-21 13:41 | Internal Med Progress Note ---
Hospitalist Progress Note - Encounter Date of Encounter: 02/21/19 Time of Encounter: 09:00 - Subjective Interval History: No acute events overnight - Exam Vitals: Temp Pulse Resp BP Pulse Ox 97.6 F 78 18 112/67 94 02/21/19 11:14 02/21/19 11:14 02/21/19 11:14 02/21/19 11:14 02/21/19 11:14 Exam: GENERAL: Mildly distressed obese male A&O x3, pleasant and conversant at his bedside SKIN: [place] warm dry non-jaundiced EYES: EOMI, PERRLA, no sclera icterus HENT: Head atraumatic, no facial asymmetry, frontal and maxillary sinus non- tender, normal hearing, oropharynx and mucosa moist and without any exudates Mallampati score of 3 NECK: No cervical lymphadenopathy, trachea midline, thyroid is palpable does not appear enlarged LUNGS: Diminished breath sounds with wheeze and scattered crackles. Non labored respirations HEART: Normal rate and rhythm, no murmurs or rubs ABDOMEN: soft, non-tender, non-distended, bowel sounds x 4 normoactive EXTRMITIES: No LE asymmetry, No LE edema, pedal pulses 1+ and radial pulses 2 + and equal bilaterally NEURO: Speech and comprehension appears intact. PSYCH: Cooperative, non- anxious or irritable, mood and affect is appropriate - Assessment and Plan (1) Acute systolic (congestive) heart failure Current Visit: Yes Status: Acute Assessment and Plan: Pt comes in with shortness of breath and cough of [address] chest shows bilateral pleural effusions and echo showed severe sytolic dysfun ction This is new onset acute systolic cHF. continue diuresis with lasix. Cardiology plan on [facility] on saturday Has multiple risk factors for CAD with obesity and family hx of CAD Clinically improved and less dyspneic (2) Cardiomyopathy Current Visit: Yes Status: Acute Assessment and Plan: See #1. New cardiomyopathy. Cardiology on board and plan for [facility] on saturday (3) Pneumonia Current Visit: Yes Status: Acute Assessment and Plan: Continue ceftriaxone and azithromycin. There could be a componenet of occupatio nal lung disease Wean off steroids as tolerated (4) DVT prophylaxis Current Visit: Yes Status: Acute Assessment and Plan: Heparin sc - Time Spent with Patient Total time spent is greater than 50% in coordination of care (as documented) at patient's floor/unit and/or counseling patient: Internal Medicine: Result - Labs CBC & Chem 7: 02/21/19 06:42 02/21/19 06:42 Labs: Short CBC 02/21/19 Range/Units 06:42 WBC 16.1 H D (4.3-11.1) K/mcL Hgb 15.7 (12.9-16.9) g/dL Hct 45.4 (37.5-50.1) % Plt Count 315 (140-400) K/mcL Neutrophils # 13.9 H (1.6-8.9) K/mcL BMP 02/21/19 06:42 Sodium 137 Potassium 4.0 Chloride 104 Carbon Dioxide 25 BUN 25 H Creatinine 1.11 Glucose 151 H Calcium 9.6 - Impressions Impressions Chest CTA 02/20/19 12:38 IMPRESSION: No central or segmental pulmonary embolus. Small pleural effusions. Bilateral ground-glass opacities are nonspecific and may be related to edema versus infection. D/ / 02/20/2019 12:54:02 Jabier Melo MD / [facility] Interpreting Provider: Jabier Melo MD Echocardiogram Limited Views 02/20/19 21:59 Impressions: LVEF 25%. Severely dilated left ventricle. Severe left ventricular systolic dysfunction. There is no LV thrombus. Left Ventricular Wall Motion: Rest Echo Findings The apex, apical inferior, mid inferior, basal inferior, apical anterior, mid anterior, basal anterior, apical septal, mid inferior septal, basal inferior septal, apical lateral, mid anterior lateral, basal anterior lateral, mid anterior septal, mid inferior lateral, basal anterior septal and basal inferior lateral calderon were hypokinetic. Findings: Study Quality * Technically adequate exam. ECG Findings * Sinus rhythm with PVCs. Left Ventricle * LVEF 25%. * Severely dilated left ventricle. * Severe left ventricular systolic dysfunction. * There is no LV thrombus. Aorta * Normally sized aortic root. Pericardium * The pericardium appears normal. Consult Discharge Plan - Plan Referrals: Deniz Maier DO [Primary Care Provider] -
[2019-02-22] MEDS: Ipratropium/Albuterol Neb 3 ML IH SCH ×4 (03:51→22:46)
[2019-02-22] MEDS: *HR* Heparin 5,000 UNIT/ML VIAL SQ SCH ×2 (06:00→16:57)
[2019-02-22 06:52] LABS: Basophils % 0.2 %; Eosinophils # 0.1 K/mcL (0.0-0.6); Eosinophils % 0.4 %; Hematocrit 46.8 % (37.5-50.1); Hemoglobin 15.8 g/dL (12.9-16.9); Immature Granulocytes % 0.7 % (0-4); Lymphocytes # 3.4 K/mcL (0.6-4.6); Lymphocytes % 26.1 %; Mean Corpuscular HGB Conc 33.8 g/dL (31.6-35.5); Mean Corpuscular Hemoglobin 29.4 pg (28.0-33.3); Mean Corpuscular Volume 87.2 fL (83.0-100.0); Mean Platelet Volume 10.2 fL (9.4-12.4); Monocytes % 7.9 %; Neutrophils # 8.4 K/mcL (1.6-8.9); Platelet Count 298 K/mcL (140-400); Red Blood Count 5.37 M/mcL (4.19-5.50); Red Cell Distribution Width 13.4 % (11.5-14.5); Segmented Neutrophils % 64.7 %
[2019-02-22 07:10] LABS: BUN/Creatinine Ratio 25 (6-26); Blood Urea Nitrogen 28 mg/dL (6-20); Calcium 9.2 mg/dL (8.6-10.3); Carbon Dioxide 28 mEq/L (23-29); Chloride 105 mEq/L (98-107); Glucose 109 mg/dL (70-105); Magnesium 2.2 mg/dL (1.6-2.6); Osmolality,Calculated 292 (280-300); Phosphorous 3.9 mg/dL (2.7-4.5); Potassium 3.8 mEq/L (3.5-5.1); Sodium 138 mEq/L (136-145); eGFR For African Americans > 60 (> 60); eGFR For Non-African Americans > 60 (> 60)
--- NOTE | 2019-02-22 07:58 | Internal Med Progress Note ---
Hospitalist Progress Note - Encounter Date of Encounter: 02/22/19 Time of Encounter: 08:00 - Subjective Interval History: No acute events overnight - Exam Vitals: Temp Pulse Resp BP Pulse Ox 96.4 F L 90 14 112/78 92 02/22/19 07:35 02/22/19 07:35 02/22/19 07:35 02/22/19 07:35 02/22/19 07:35 Exam: GENERAL: Mildly distressed obese male A&O x3, pleasant and conversant at his bedside SKIN: [place] warm dry non-jaundiced EYES: EOMI, PERRLA, no sclera icterus HENT: Head atraumatic, no facial asymmetry, frontal and maxillary sinus non- tender, normal hearing, oropharynx and mucosa moist and without any exudates Mallampati score of 3 NECK: No cervical lymphadenopathy, trachea midline, thyroid is palpable does not appear enlarged LUNGS: Diminished breath sounds with wheeze and scattered crackles. Non labored respirations HEART: Normal rate and rhythm, no murmurs or rubs ABDOMEN: soft, non-tender, non-distended, bowel sounds x 4 normoactive EXTRMITIES: No LE asymmetry, No LE edema, pedal pulses 1+ and radial pulses 2 + and equal bilaterally NEURO: Speech and comprehension appears intact. PSYCH: Cooperative, non- anxious or irritable, mood and affect is appropriate - Assessment and Plan (1) Acute systolic (congestive) heart failure Current Visit: Yes Status: Acute Assessment and Plan: Pt comes in with shortness of breath and cough of [address] chest shows bilateral pleural effusions and echo showed severe sytolic dysfu nction This is new onset acute systolic cHF. continue diuresis with lasix. Cardiology plan on [facility] on saturday Has multiple risk factors for CAD with obesity and family hx of CAD Clinically improved and less dyspneic. Switch lasix to oral (2) Cardiomyopathy Current Visit: Yes Status: Acute Assessment and Plan: See #1. New cardiomyopathy. Cardiology on board and plan for [facility] on saturday (3) Pneumonia Current Visit: Yes Status: Acute Assessment and Plan: Continue ceftriaxone and azithromycin. There could be a componenet of occupational lung disease Wean off steroids as tolerated (4) DVT prophylaxis Current Visit: Yes Status: Acute Assessment and Plan: Heparin sc - Time Spent with Patient Total time spent is greater than 50% in coordination of care (as documented) at patient's floor/unit and/or counseling patient: Internal Medicine: Result - Labs CBC & Chem 7: 02/22/19 06:15 02/22/19 06:15 Labs: Short CBC 02/21/19 02/22/19 Range/Units 06:42 06:15 WBC 16.1 H D 13.0 H (4.3-11.1) K/mcL Hgb 15.7 15.8 (12.9-16.9) g/dL Hct 45.4 46.8 (37.5-50.1) % Plt Count 315 298 (140-400) K/mcL Neutrophils # 13.9 H 8.4 (1.6-8.9) K/mcL BMP 02/21/19 02/22/19 06:42 06:15 Sodium 137 138 Potassium 4.0 3.8 Chloride 104 105 Carbon Dioxide 25 28 BUN 25 H 28 H Creatinine 1.11 1.10 Glucose 151 H 109 H Calcium 9.6 9.2 - Impressions Impressions Echocardiogram Limited Views 02/20/19 21:59 Impressions: LVEF 25%. Severely dilated left ventricle. Severe left ventricular systolic dysfunction. There is no LV thrombus. Left Ventricular Wall Motion: Rest Echo Findings The apex, apical inferior, mid inferior, basal inferior, apical anterior, mid anterior, basal anterior, apical septal, mid inferior septal, basal inferior septal, apical lateral, mid anterior lateral, basal anterior lateral, mid anterior septal, mid inferior lateral, basal anterior septal and basal inferior lateral calderon were hypokinetic. Findings: Study Quality * Technically adequate exam. ECG Findings * Sinus rhythm with PVCs. Left Ventricle * LVEF 25%. * Severely dilated left ventricle. * Severe left ventricular systolic dysfunction. * There is no LV thrombus. Aorta * Normally sized aortic root. Pericardium * The pericardium appears normal. Consult Discharge Plan - Plan Referrals: Deniz Maier DO [Primary Care Provider] - (3) Pneumonia Qualifiers: Pneumonia type: due to unspecified organism Lung location: unspecified part of lung Qualified Code(s): J18.9 - Pneumonia, unspecified organism
[2019-02-22] MEDS: cefTRIAXone 1,000 MG in Water for inj. (sterile) 10 ML IVP SCH (09:25)
[2019-02-22] MEDS: Azithromycin 250 MG TABLET PO SCH (09:26)
[2019-02-22] MEDS: Furosemide 40 MG/4 ML VIAL IVP SCH (09:26)
--- NOTE | 2019-02-22 09:49 | Cardiology Progress Note ---
Date of Encounter: 02/22/19 Time of Encounter: 09:47 Assessment and Plan (1) Acute systolic (congestive) heart failure Current Visit: Yes Status: Acute Acute systolic CHF. CXR and CT chest show b/l pleural effusions with interstitial opacities consistent with pulmonary edema EKG shows left atrial enlargement, ventricular Bigeminy, t-wave abnormality in lateral leads Echo shows severe LV systolic dysfunction, LV diastolic dysfunction with increased filling pressures, no PulmHTN, no significant valvular disease No evidence of Right heart Failure on echo, no peripheral edema on exam Troponins x3 were minimally elevated, 0.06-->0.05-->0.05, BNP 670; Patient denies any instances of chest pain Echo was suboptimal study d/t body habitus, will repeat with Definity. Repeat echo- EF severely reduced at 25%. No prior history. IV lasix given today. Convert IV lasix to oral. Appears euvolemic on exam. Net negative 6620 ml. Noted patient also has pnuemonia. Leukocytosis due to steroids. He is afebrile. Continue bb and aceI. [facility] saturday as recommended for ischemic evaluation. Patient agrees with plan. (2) Pneumonia Current Visit: Yes Status: Acute Qualifiers: Pneumonia type: due to unspecified organism Lung location: unspecified part of lung Qualified Code(s): J18.9 - Pneumonia, unspecified organism Discussion w patient/family: The assessment and plan as outlined above was discussed with the patient and/or family members who expressed understanding and agreement. All questions were answered. Thank you for involving us in the care of your patient. Please call with any questions. Subjective Principal diagnosis: CHF Interval history: Pt reports he is breathing better. Cough improved. No orthopnea. Objective Vital Signs, Last 4 Hours Temp Pulse Resp BP Pulse Ox 02/22/19 07:35 96.4 F L 90 14 112/78 92 General: Conversant, No Apparent Distress HEENT: Atraumatic, Normocephaly, Mucus Membranes Moist Neck: No JVD, Normal carotid pulses Cardiac: Reg Rate and Rhythm, Normal S1 and S2, No Murmur Lungs: Normal Breath Sounds, No Wheeze, Rales, Rhonchi Neuro: Alert and responsive, No focal deficits noted Abdomen: Soft, Non-Tender Skin: No rashes noted on visualized skin Musculoskeletal: No Chest Wall Tenderness Extremities: No Clubbing, No Cyanosis, No Edema, Normal Pulses Results 02/22/19 06:15 02/22/19 06:15 Lab Results 02/22/19 02/22/19 06:15 06:15 WBC 13.0 H Hgb 15.8 Hct 46.8 Plt Count 298 Sodium 138 Potassium 3.8 Chloride 105 Carbon Dioxide 28 BUN 28 H Creatinine 1.10 Glucose 109 H Calcium 9.2 Magnesium 2.2 - Imaging and Cardiology Echo: report reviewed - EKG Interpretation EKG results cardiology: personally reviewed Consult Discharge Plan - Plan Referrals: Deniz Maier DO [Primary Care Provider] - Cardiac Rehab - Cardiac Rehab Cardiac Rehab: Phase I consult completed. Patient was educated on why Cardiac Rehabilitation is beneficial to his/her health. Participating in a cardiac rehabilitation can improve the following: strengthen your heart, improve ejection fraction, weight reduction, decrease cholesterol levels, lower blood pressure, lower blood sugar, improve stamina, and enhance self-image. If he/she has any questions, they were instructed to call [facility] at [phone].
[2019-02-22] MEDS: Aspirin 81 MG TAB.CHEW PO SCH (11:37)
[2019-02-23] MEDS: Ipratropium/Albuterol Neb 3 ML IH SCH ×4 (04:40→21:44)
[2019-02-23] MEDS: *HR* Heparin 5,000 UNIT/ML VIAL SQ SCH ×2 (05:39→17:05)
[2019-02-23 06:06] LABS: Basophils # 0.1 K/mcL (0.0-0.2); Basophils % 0.5 %; Eosinophils # 0.2 K/mcL (0.0-0.6); Eosinophils % 1.6 %; Hematocrit 48.7 % (37.5-50.1); Hemoglobin 16.5 g/dL (12.9-16.9); Immature Granulocytes % 0.8 % (0-4); Lymphocytes % 30.9 %; Mean Corpuscular HGB Conc 33.9 g/dL (31.6-35.5); Mean Corpuscular Hemoglobin 29.8 pg (28.0-33.3); Mean Corpuscular Volume 87.9 fL (83.0-100.0); Mean Platelet Volume 10.2 fL (9.4-12.4); Monocytes # 0.9 K/mcL (0.0-1.3); Monocytes % 9.3 %; Neutrophils # 5.6 K/mcL (1.6-8.9); Platelet Count 288 K/mcL (140-400); Red Blood Count 5.54 M/mcL (4.19-5.50); Segmented Neutrophils % 56.9 %; White Blood Count 9.8 K/mcL (4.3-11.1)
[2019-02-23 06:25] LABS: BUN/Creatinine Ratio 24 (6-26); Blood Urea Nitrogen 29 mg/dL (6-20); Calcium 9.3 mg/dL (8.6-10.3); Carbon Dioxide 30 mEq/L (23-29); Chloride 101 mEq/L (98-107); Glucose 110 mg/dL (70-105); Magnesium 2.3 mg/dL (1.6-2.6); Osmolality,Calculated 290 (280-300); Phosphorous 3.5 mg/dL (2.7-4.5); Sodium 137 mEq/L (136-145); eGFR For African Americans > 60 (> 60); eGFR For Non-African Americans > 60 (> 60)
--- NOTE | 2019-02-23 07:45 | Internal Med Progress Note ---
Hospitalist Progress Note - Encounter Date of Encounter: 02/23/19 Time of Encounter: 08:00 - Subjective Interval History: No acute events overnight - Exam Vitals: Temp Pulse Resp BP Pulse Ox 97.5 F L 69 14 145/82 95 02/23/19 06:46 02/23/19 06:46 02/23/19 06:46 02/23/19 06:46 02/23/19 06:46 Exam: GENERAL: Mildly distressed obese male A&O x3, pleasant and conversant at his bedside SKIN: [place] warm dry non-jaundiced EYES: EOMI, PERRLA, no sclera icterus HENT: Head atraumatic, no facial asymmetry, frontal and maxillary sinus non- tender, normal hearing, oropharynx and mucosa moist and without any exudates Mallampati score of 3 NECK: No cervical lymphadenopathy, trachea midline, thyroid is palpable does not appear enlarged LUNGS: Diminished breath sounds with wheeze and scattered crackles. Non labored respirations HEART: Normal rate and rhythm, no murmurs or rubs ABDOMEN: soft, non-tender, non-distended, bowel sounds x 4 normoactive EXTRMITIES: No LE asymmetry, No LE edema, pedal pulses 1+ and radial pulses 2 + and equal bilaterally NEURO: Speech and comprehension appears intact. PSYCH: Cooperative, non- anxious or irritable, mood and affect is appropriate - Assessment and Plan (1) Acute systolic (congestive) heart failure Current Visit: Yes Status: Acute Assessment and Plan: Pt comes in with shortness of breath and cough of [address] chest shows bilateral pleural effusions and echo showed severe sytolic dysfu nction This is new onset acute systolic cHF. continue diuresis with lasix. Cardiology plan on [facility] on saturday Has multiple risk factors for CAD with obesity and family hx of CAD Clinically improved and less dyspneic. Switch lasix to oral (2) Cardiomyopathy Current Visit: Yes Status: Acute Assessment and Plan: See #1. New cardiomyopathy. Cardiology on board and plan for [facility] today (3) Pneumonia Current Visit: Yes Status: Acute Assessment and Plan: Continue ceftriaxone and azithromycin. There could be a componenet of occupational lung disease Wean off steroids as tolerated (4) DVT prophylaxis Current Visit: Yes Status: Acute Assessment and Plan: Heparin sc - Time Spent with Patient Total time spent is greater than 50% in coordination of care (as documented) at patient's floor/unit and/or counseling patient: Internal Medicine: Result - Labs CBC & Chem 7: 02/23/19 05:28 02/23/19 05:28 Labs: Short CBC 02/23/19 Range/Units 05:28 WBC 9.8 (4.3-11.1) K/mcL Hgb 16.5 (12.9-16.9) g/dL Hct 48.7 (37.5-50.1) % Plt Count 288 (140-400) K/mcL Neutrophils # 5.6 (1.6-8.9) K/mcL BMP 02/23/19 05:28 Sodium 137 Potassium 4.0 Chloride 101 Carbon Dioxide 30 H BUN 29 H Creatinine 1.23 Glucose 110 H Calcium 9.3 Consult Discharge Plan - Plan Referrals: Deniz Maier DO [Primary Care Provider] - (3) Pneumonia Qualifiers: Pneumonia type: due to unspecified organism Lung location: unspecified part of lung Qualified Code(s): J18.9 - Pneumonia, unspecified organism
[2019-02-23] MEDS: Furosemide 40 MG TABLET PO SCH (10:12)
[2019-02-23] MEDS: cefTRIAXone 1,000 MG in Water for inj. (sterile) 10 ML IVP SCH (10:13)
[2019-02-23] MEDS: Azithromycin 250 MG TABLET PO SCH (10:13)
[2019-02-23] MEDS: Aspirin 81 MG TAB.CHEW PO SCH (10:13)
--- NOTE | 2019-02-23 12:20 | Event Note ---
Date of Encounter: 02/23/19 Time of Encounter: 12:19 - Cardiology Event Note [facility] [place] scheduled for this afternoon for ischemic evaluation with new cardiomyopathy. Labs and vitals reviewed. Short CBC 02/23/19 Range/Units 05:28 WBC 9.8 (4.3-11.1) K/mcL Hgb 16.5 (12.9-16.9) g/dL Hct 48.7 (37.5-50.1) % Plt Count 288 (140-400) K/mcL Neutrophils # 5.6 (1.6-8.9) K/mcL BMP 02/23/19 Range/Units 05:28 Sodium 137 (136-145) mEq/L Potassium 4.0 (3.5-5.1) mEq/L Chloride 101 (98-107) mEq/L Carbon Dioxide 30 H (23-29) mEq/L BUN 29 H (6-20) mg/dL Creatinine 1.23 (0.70-1.30) mg/dL Glucose 110 H (70-105) mg/dL Calcium 9.3 (8.6-10.3) mg/dL Vital Signs Temp Pulse Resp BP Pulse Ox 02/23/19 11:08 96.2 F L 50 14 113/82 93 02/23/19 10:44 18 95 02/23/19 06:46 97.5 F L 69 14 145/82 95 02/23/19 05:15 16 98 02/23/19 00:06 97.5 F L 87 19 120/81 96 02/22/19 22:47 16 96 02/22/19 19:51 98.1 F 87 19 110/81 94 02/22/19 16:26 96.2 F L 58 14 119/80 94 02/22/19 15:48 18 95 Intake and Output 02/22/19 02/23/19 02/23/19 23:59 07:59 15:59 Output Total 800 / 2400 Balance -800 / -1530 Output: Urine 800 / 2400 HAS-BLED Score - Score Medication usage predisposing to bleeding: Antiplatelet agents, NSAIDs, Anticoagulants Score: 1
[2019-02-23] MEDS ORDERED: Heparin 1,000 UNITS/500 mL 500 ML ONE (15:53)
[2019-02-23] MEDS ORDERED: *HR* Midazolam HCl 2 MG/2 ML VIAL ONE (15:53)
[2019-02-23] MEDS ORDERED: 0.9 % Sodium Chloride 1,000 ML ONE (15:53)
[2019-02-23] MEDS ORDERED: *HR* FentaNYL (PF) 100 MCG/2 ML VIAL ONE (15:53)
[2019-02-23] MEDS ORDERED: Nitroglycerin 1,000 MCG/10 ML VIAL IV ONE (15:54)
[2019-02-23] MEDS ORDERED: Iopamidol 125 ML INFUS..BTL ONE (15:54)
[2019-02-23] MEDS ORDERED: *HR* Heparin 10,000 UNIT/10 ML VIAL ONE (15:54)
--- NOTE | 2019-02-23 15:56 | Pre-Sedation Evaluation ---
Pre-sedation evaluation - Pre-sedation checklist Date of procedure: 02/23/19 Procedure: [facility] Recent Vitals: Last Vital Signs Temp 96.2 F L 02/23/19 11:08 Pulse 50 02/23/19 11:08 Resp 14 02/23/19 11:08 BP 113/82 02/23/19 11:08 Pulse Ox 93 02/23/19 11:08 H&P (including ROS) documented in medical record: Yes Previous reaction to sedatives/anesthetics: No Dietary Status: NPO after Midnight Dentition: No loose teeth or bridges ASA Classification *see protocol: CLASS II-Mild systemic disease Cardiac Registry (Cardio Only) - Functional Capacity Functional Capacity: < 4 METS - Clincal Frailty Scale Clinical Frailty Scale: Vulnerable
--- NOTE | 2019-02-23 16:41 | Event Note ---
Date of Encounter: 02/23/19 Time of Encounter: 16:30 - Cardiology Event Note LHC showed moderate non-obstructive CAD. NICMP. Continue medical management. Noted PVC on monitor with occasional bigemeny. NSR. No NSVT seen. Continue asa, statin, bb, aceI. Re-evaluate EF in 3 months to evaluate need for ICD. CHF education reviewed. He is now euvolemic. Cardiology will sign off. Out-pt f/u will be coordinated.
--- NOTE | 2019-02-23 16:49 | Invasive Diagnostic Lab Proc ---
Name: Joe Brunner Date of Study: 02/23/2019 Date: 1970 Ht: 70.0in Medical Record#: [id number] Age: 48 Wt: 282.63lb Gender: Male BSA: 2.42 Order #: [id number] BMI: 40.55 Physicians Procedure Physician: Carleen Eduardo MD Referring MD: Referring MD: Staff Name Position Time In Neha Sharma RT (R) Monitor 04:09 PM Pauly Franco RT (R) Monitor 04:09 PM Roxana Lemus RT (R) Scrub 04:09 PM Scott Green RN Health Unit Clerk 04:09 PM Indications Indication Cardiomyopathy Procedures Performed Procedure CORONARY ARTERY ANGIO S&I Pre-Procedure Checklist Informed consent is complete signed and on chart. H&P is on chart. ID band is on and ID verified with patient. Patient NPO for procedure The procedure was described for the patient and questions were answered. Blood Pressure: 145/82 ECG is on chart. Plan of Care Patient will tolerate the procedure without complications. Adequate level of comfort will be maintained. Hemodynamics will remain stable Patient will recover from procedure without complications. Respiratory function will be maintained. Cardiac rhythm will remain stable. Patient temperature will be maintained. Patient and/or family have verbalized understanding of the procedure. Patient Education Chief Complaint/Reason for Test: Cardiac Cath Developmental Category: Adult (18-64 years) Developmentally Appropriate for Age: Yes Learning Barriers: None Education Needs: Procedure Education Method: Verbal Information Taught: Cardiac Cath Educational Evaluation: Able to repeat information Intravenous Access Time IV Size Location DC'd Fluid/Drip Rate Units RN 04:02 PM 18g 1 1/4" Patent On Arrival Lt Antecubital No 0.9NaCl 50 m l/hr Scott Green RN 04:02 PM 22g 1" Patent On Arrival Lt Antecubital Scott Green RN Allergies doxycycline Vital Signs Time BP (mmHg) HR (bpm) O2 Sat. RR (bpm) LOC 04:02 PM 145 / 82 69 95 % 16 5 = Fully awake and oriented or at pre-proc level 04:09 PM / % 5 = Fully awake and oriented or at pre-proc level 04:09 PM / % 4 = Oriented but drowsy 04:24 PM / % 4 = Oriented but drowsy 04:10 PM 136 / 90 108 98 % 16 04:16 PM 127 / 82 103 92 % 18 04:21 PM 123 / 81 97 93 % 16 04:25 PM 121 / 83 99 96 % 18 04:30 PM 123 / 91 100 96 % 16 04:35 PM 125 / 97 102 99 % 16 Procedural Medications Time Medication Dose Units Method Given By 04:09 PM Oxygen 2 L/min nasal cannula Scott Green RN 04:12 PM Versed 1 mg Intravenous Scott Green RN 04:12 PM Fentanyl 50 mcg Intravenous Scott Green RN 04:22 PM Lidocaine 2% 10 ml Subcutaneous Carleen Eduardo MD ASA Classification: CLASS II- Mild systemic disease (i.e. well-controlled diabetes, hypertension, asthma, cigarette smoking) Anastasia Score Preprocedure Postprocedure Activity 2- Moves 4 extremities sustained head lift Activity 2- Moves 4 extremities sustained head lift Circulation 2- SBP +/= 20 points of pre-anesthetic level Circulation 2- SBP +/= 20 points of pre-anesthetic level Consciousness 2- Awake and alert oriented x 3 Consciousness 2- Awake and alert oriented x 3 O2 Saturation 2- Able to maintain O2 satruation of 92% on room air O2 Saturation 2- Able to maintain O2 satruation of 92% on room air Respiratory 2- Able to deep breathe and cough well Respiratory 2- Able to deep breathe and cough well Total Score 10 Total Score 10 Contrast Agent: Isovue Diagnostic Contrast: 58 ml Total Contrast: 58 ml Fluoro Dose: 57 mGy Procedure Log Time Note Enter By 04:06 PM CathStat 04:06 PM Pt arrived to pathology laboratory technologist 2 at 16:06 tw 04:06 PM Physician arrived 16: 04:06 PM Nathan completed 04:06 PM Sign in performed according to hospital policy. Informed consent was obtained. 04:09 PM Neha Sharma RT (R) Position: Monitor Time in: 16: 04:09 PM Pauly Franco RT (R) Position: Monitor Time in: 16: 04:09 PM Roxana Lemus RT (R) Position: Scrub Time in: 16: 04:09 PM Scott Green RN Position: Health Unit Clerk Time in: 16: 04:09 PM Patient charges- Angio tray pack, Navilyst 3mm J, Pulse Oximetry and ACIST tubing and transducer tw PM Case Delayed no PM Hair removed from procedure site in procedure lab using clippers. Bilateral groin prepped with Chloraprep by Roxana Lemus (R), then patient was draped. Skin intact. tw PM ASA Class CLASS II- Mild systemic disease (i.e. well-controlled diabetes, hypertension, asthma, cigarette smoking) tw PM Time: 16: Oxygen on at 2 L/min per nasal cannula by Scott Green RN Time: 16:09 Patient comfortable and pain free: Yes PM Time: 16:LOC: 5 = Fully awake and oriented or at pre-proc level tw: PM Vitals capture started with the following parameters, Patient=Adult, Interval=5 min, Initial Svnxbgli=171 mmHg, Deflation Rate=3 mmHg, Cuff placed on Right Arm 04:10 PM YH=554 bpm, ZLJF=607/90 mmhg, SpO2=98.0 %, Resp=16 B/min 04:11 PM Procedure start 16:11 tw: PM Recorded ECG: WN=898 Condition=Condition 1 04:12 PM Time: 16:12 Versed 1 mg Intravenous Given by Scott Green RN [facility] :12 PM Time: 16:12 Fentanyl 50 mcg Intravenous Given by Scott Green RN [facility] 04:16 PM YH=105 bpm, YHNI=128/82 mmhg, SpO2=92.0 %, Resp=18 B/min 04:20 PM Pressure channel 1 zeroed. 04:21 PM HR=97 bpm, DTYE=923/81 mmhg, SpO2=93.0 %, Resp=16 B/min 04:22 PM Time out was performed according to hospital policy. Conscious sedation and anesthesia was achieved (see medication log with in this report above) tw PM Time: 16:22 10 ml Lidocaine 2% to right groin Subcutaneous Given by Carleen Eduardo MD PM Time: 16:09 Patient comfortable and pain free: Yes tw PM Time: 16:09LOC: 4 = Oriented but drowsy tw PM Micro-Introducer Kit utilized for sheath placement twilson PM Access obtained by percutaneous puncture. 6Fr 10cm Terumo Warba sheath placed in right Femoral artery. [id number] twilson 04:25 PM Bolus angiogram of right Femoral complete, hand injection. twilson 04:25 PM 5Fr FR 4 catheter inserted over the wire DNC twilson 04:25 PM Wire removed twilson 04:25 PM HR=99 bpm, EAWS=540/83 mmhg, SpO2=96.0 %, Resp=18 B/min 04:26 PM Recorded Pressure: Ao, HR=99, Condition=Condition 1 (Aorta) Ao 101/76/89 04:26 PM Recorded Pressure: Ao, HR=93, Condition=Condition 1 (Aorta) Ao 106/85/96 04:27 PM RCA angiography performed in multiple views. twilson 04:27 PM Lesion found in Proximal RCA. Pre Stenosis: 60 Pre MARC Flow: twilson 04:27 PM Wire reinserted. twilson 04:28 PM Catheter removed twilson 04:28 PM 5Fr FL 4 catheter inserted over the wire DNC twilson 04:29 PM Recorded Pressure: Ao, MO=238, Condition=Condition 1 (Aorta) Ao 104/83/94 04:29 PM Wire removed twilson 04:29 PM LCA angiography performed in multiple views. twilson 04:29 PM Recorded Pressure: Ao, IZ=653, Condition=Condition 1 (Aorta) Ao 96/85/92 04:30 PM Lesion found in Mid LAD. Pre Stenosis: 40 Pre MARC Flow: twilson 04:30 PM GV=610 bpm, BIAE=554/91 mmhg, SpO2=96.0 %, Resp=16 B/min 04:31 PM Lesion found in Distal Circumflex. Pre Stenosis: 50 Pre MARC Flow: twilson 04:31 PM Wire reinserted. twilson 04:31 PM Catheter removed twilson 04:31 PM 5Fr Pigtail catheter inserted over the wire DNC twilson 04:32 PM Unable to advance. twilson 04:33 PM Wire reinserted. twilson 04:33 PM Catheter removed twilson 04:33 PM Wire removed twilson 04:34 PM Coronary Dominance: right twilson 04:34 PM Procedure completed at 16:34 02/23/2019 twilson 04:34 PM Did you address MARC flow and Dominance? YesCoronary Dominance: right twilson 04:35 PM Sign out completed: Radiation Dose 467.18 mGy, 57.1 Gy/cm2 Fluoro Time: 3.0 Isovue 370 - 200ml contrast 58 ml given by Carleen Eduardo MD. Complications: None. The patient was discharged out of the rn labor and delivery in stable condition. Sedation minutes 23. Cardiac Rehab Consult needed: No. Confirmed administered medications: Yes twilson 04:35 PM Isovue 370 - 125ml,1 Bottle(s) used. twilson 04:35 PM Arterial sheath pulled, Mynx closure device used and was Successful [id number] S/N. twilson 04:35 PM KF=782 bpm, ZYKI=281/97 mmhg, SpO2=99.0 %, Resp=16 B/min 04:36 PM Estimated Blood Loss: minimal twilson 04:36 PM Post ECG NSR twilson 04:36 PM Post Blood Pressure 125/97 twilson 04:36 PM 16:36 Post Pulses Bilateral DP & PT 2+ twilson 04:36 PM 16:36 Post Pulses Bilateral radial 2+ twilson 04:36 PM Information taught Cardiac Cath and Mynx twilson 04:36 PM Education needs Procedure, Plan of Care, and Responsibilities of Patient in Care twilson 04:36 PM Learning barriers :None twilson 04:36 PM Education Methods Verbal twilson 04:36 PM Education evaluation Able to repeat information twilson 04:36 PM Site status No bleeding/ No Hematoma - Rt Groin as reported by Roxana Lemus RT (R) at 16:36 twilson 04:36 PM Opsite applied twilson 04:36 PM Delay to floor No twilson 04:36 PM Family placed in consult room. twilson 04:39 PM Time: 16:23 Patient comfortable and pain free: Yes twilson 04:39 PM Time: 16:24LOC: 4 = Oriented but drowsy twilson 04:40 PM Vitals capture stopped. 04:43 PM Report given to Concha GRIFFIN Pt taken to 2A Room #47. 16:43 twilson 04:43 PM Patient out of room: 16:43 twilson Complications Complication None Hemodynamics Pressures Site Systolic/A Wave Diastolic/V Wave Mean AO 101 76 89 AO 106 85 96 AO 104 83 94 AO 96 85 92 Post Procedure Information Blood Pressure: 125/97 mmHg Rhythm: NSR Post procedural instructions were given Closure Device Time Device Success/Fail 02/23/2019 4:38:00 PM MynxGrip Successful Site Checks Time Location Status Staff Sheath In? Note 04:36 PM Rt Groin No bleeding/ No Hematoma Roxana Lemus RT (R) Pulses Time Site Pre-Procedure Post-Procedure Note 02/23/2019 4:02:00 PM Bilateral DP & PT 2+ 02/23/2019 4:02:00 PM Bilateral radial 2+ 4:36:00 PM Bilateral DP & PT 2+ 4:36:00 PM Bilateral radial 2+ Updated by Neha Sharma RT (R) on 02/23/2019 4:44:22 PM electronically signed on 02/23/2019 4:45:07 PM with status of Final
[2019-02-23] MEDS ORDERED: Acetaminophen 325 MG TABLET PO ONE (20:28)
[2019-02-24] MEDS: Ipratropium/Albuterol Neb 3 ML IH SCH (03:36)
[2019-02-24 04:51] LABS: Basophils # 0.1 K/mcL (0.0-0.2); Eosinophils # 0.2 K/mcL (0.0-0.6); Eosinophils % 2.2 %; Hematocrit 50.9 % (37.5-50.1); Hemoglobin 17.5 g/dL (12.9-16.9); Immature Granulocytes % 1.2 % (0-4); Lymphocytes % 32.2 %; Mean Corpuscular HGB Conc 34.4 g/dL (31.6-35.5); Mean Corpuscular Hemoglobin 29.3 pg (28.0-33.3); Mean Corpuscular Volume 85.1 fL (83.0-100.0); Mean Platelet Volume 10.5 fL (9.4-12.4); Monocytes % 11.1 %; Neutrophils # 4.9 K/mcL (1.6-8.9); Platelet Count 304 K/mcL (140-400); Red Blood Count 5.98 M/mcL (4.19-5.50); Red Cell Distribution Width 12.6 % (11.5-14.5); Segmented Neutrophils % 52.3 %; White Blood Count 9.4 K/mcL (4.3-11.1)
[2019-02-24 05:03] LABS: BUN/Creatinine Ratio 22 (6-26); Blood Urea Nitrogen 25 mg/dL (6-20); Calcium 9.3 mg/dL (8.6-10.3); Carbon Dioxide 27 mEq/L (23-29); Chloride 101 mEq/L (98-107); Glucose 91 mg/dL (70-105); Magnesium 2.5 mg/dL (1.6-2.6); Osmolality,Calculated 288 (280-300); Phosphorous 3.2 mg/dL (2.7-4.5); Potassium 4.3 mEq/L (3.5-5.1); Sodium 137 mEq/L (136-145); eGFR For African Americans > 60 (> 60); eGFR For Non-African Americans > 60 (> 60)
[2019-02-24] MEDS: *HR* Heparin 5,000 UNIT/ML VIAL SQ SCH (05:42)
[2019-02-24 07:14] VITALS: BP 114/75
--- NOTE | 2019-02-24 07:46 | Discharge Summary ---
Date of Encounter: 02/24/19 Time of Encounter: 09:00 - Discharge Diagnosis (1) Acute systolic (congestive) heart failure Priority: Primary Status: Acute Assessment and Plan: 48 year old male with no significant past medical history he does reports possible dyslipidemia who presented to the ED to be evaluated for shortness of breath. Patient stated that for the past 3 weeks he has had insidious onset of shortness of breath, cough with occasional blood-streaked mucus. He also reports dyspnea on mild exertion orthopnea and paroxysmal nocturnal dyspnea. He denies any prior oxygen therapy. Patient does a history of tobacco use 1-2 packs per day for 20 years but quit many years ago. He also reports a history of social drinking on the weekends about 5-6 beers per week and and Liquor but also denies any current use. He denies any formal diagnosis of CHF, hypertension or prior history of pulmonary pathology. He reports is strong family history for coronary artery disease he is father of MS at age 43. He stated that he goes to his primary care physician twice a year every 6 months and that he works as a front load trash truck driver and denies any difficulty performing his duties until 3 weeks ago He came in with shortness of breath and cough of [address] chest shows bilateral pleural effusions and echo showed severe sytolic dysfunction. He was assessed with new onset acute systolic cHF and pneumonina. He improved on diuresis with lasix and treatment with antibiotics. He has multiple risk factors for CAD with obesity and family hx of CAD. EF was 25 % on echo. He had a left heart cath showing moderate non obstructive CAD. He was discharged in a stable condition. 35 minutes was spent discharging this patient (2) Cardiomyopathy Priority: Primary Status: Acute Assessment and Plan: See #1. New cardiomyopathy. Cardiology on board and plan for [facility] today Qualifiers: Qualified Code(s): I42.9 - Cardiomyopathy, unspecified (3) Pneumonia Priority: Primary Status: Acute Qualifiers: Pneumonia type: due to unspecified organism Lung location: unspecified part of lung Qualified Code(s): J18.9 - Pneumonia, unspecified organism (4) DVT prophylaxis Priority: Primary Status: Acute Hospital course: Mr. Brunner is a 48 year old male - Time Spent with Patient Total time spent providing and/or coordinating discharge services: - Discharge Medications Prescriptions: New Atorvastatin [Lipitor] 20 mg PO HS #60 tablet Carvedilol [Coreg] 3.125 mg PO BIDWM #60 tablet Lisinopril [Zestril] 5 mg PO DAILY #60 tablet Aspirin 81 mg PO DAILY #60 tab.chew Furosemide [Lasix] 40 mg PO DAILY #60 tablet Home Medications: Aspirin 81 mg PO DAILY #60 tab.chew 02/24/19 [Rx] Atorvastatin [Lipitor] 20 mg PO HS #60 tablet 02/24/19 [Rx] Carvedilol [Coreg] 3.125 mg PO BIDWM #60 tablet 02/24/19 [Rx] Furosemide [Lasix] 40 mg PO DAILY #60 tablet 02/24/19 [Rx] Lisinopril [Zestril] 5 mg PO DAILY #60 tablet 02/24/19 [Rx] Allergies/Adverse Reactions: Allergy/AdvReac Type Severity Reaction Status Date / Time doxycycline Allergy Rash,LAURENTI Verified 02/19/19 22:29 NG,VOMITING Date of admission: 02/21/19 07:40 Primary care physician: Deniz Maier DO Consults: 02/19/19 14:04 Consult to Letter Carrier [CONS] Routine Reason for SW Consult: for advance directives 02/20/19 10:51 Consult to Cardiology [CONS] Routine Comment: Consulting Provider: Cardiology Elizabeth Reason for Consult: new cardiomyopathy Call Completed: No 02/22/19 10:02 Consult to Cardiac Rehabilitation-Phase1 [CONS] Routine Comment: Reason for Consult: New cardiomyopathy Call Completed: No 02/22/19 17:16 Consult to Nutrition [CONS] Routine Comment: diet planning Consulting Provider: NUTRITION Reason for Dietary Consult: Diet Education - Constitutional Vitals: Temp Pulse Resp BP Pulse Ox 97.4 F L 45 24 114/75 97 02/24/19 07:11 02/24/19 07:11 02/24/19 07:11 02/24/19 07:11 02/24/19 07:11 Exam: GENERAL: Mildly distressed obese male A&O x3, pleasant and conversant at his bedside SKIN: [employer] warm dry non-jaundiced EYES: EOMI, PERRLA, no sclera icterus HENT: Head atraumatic, no facial asymmetry, frontal and maxillary sinus non- tender, normal hearing, oropharynx and mucosa moist and without any exudates Mallampati score of 3 NECK: No cervical lymphadenopathy, trachea midline, thyroid is palpable does not appear enlarged LUNGS: Diminished breath sounds with wheeze and scattered crackles. Non labored respirations HEART: Normal rate and rhythm, no murmurs or rubs ABDOMEN: soft, non-tender, non-distended, bowel sounds x 4 normoactive EXTRMITIES: No LE asymmetry, No LE edema, pedal pulses 1+ and radial pulses 2 + and equal bilaterally NEURO: Speech and comprehension appears intact. PSYCH: Cooperative, non- anxious or irritable, mood and affect is appropriate - Patient Status Disposition: Home, Self-Care Condition: Fair - Discharge Instructions Instructions: Heart Failure (DC), Left Heart Catheterization (DC), Dyspnea (GEN), Pneumonia (DC) Follow Up With: Alen Brand DO [Partnered Physician] - 02/27/19 11:00 am (Please follow up a sschedule...and Arrive 30 minutes early) Rosendo Osei, [facility] [employer] [Advanced Practice Nurse] - (Cardio will call patient with appt.)
[2019-02-24] MEDS: Furosemide 40 MG TABLET PO SCH (08:01)
[2019-02-24] MEDS: Aspirin 81 MG TAB.CHEW PO SCH (08:01)
[2019-02-24] MEDS: cefTRIAXone 1,000 MG in Water for inj. (sterile) 10 ML IVP SCH (08:01)
[2019-02-24] MEDS ORDERED: FLU Vac QV 19-20 (6Month+)/PF 0.5 ML SYRINGE IM ONE (08:26)
== END 2019-02-24 10:13 | disposition home or self-care (01) | DRG 286 ==
LOC: EMEROOARM 07:16 → 2ANU 07:16
PROVIDERS: ADMIT Pharmacist; ATTEND Pharmacist